=== PATIENT | female | born 1955 | race Caucasian/White ===

== ENCOUNTER → 2021-11-26 09:12 | Outpatient (CLI) | payer MEDICARE, SELFPAY ==
--- NOTE | 2021-11-26 | DI.RAD.S_ITS ---
PROCEDURE: XR CERVICAL SPINE 2V OR 3V INDICATIONS: NECK PAIN TECHNIQUE: 2 view(s) of the cervical spine were acquired. COMPARISON: None. FINDINGS: Bones: No fractures or dislocations to the T1 level. The lateral masses of C1 appear intact on the odontoid view. No suspicious bony lesions. There is moderate degenerative disc disease at C3-C4, C4-C5, C5-C6, C6-C7 and C7-T1. There is a lucency in the anterior aspect of the C4 vertebral body on the lateral view, probably related to an artifact. Soft tissues: No prevertebral soft tissue swelling. IMPRESSION: 1. Moderate degenerative disc disease. 2. Lucency in the anterior aspect of the C4 vertebral body is seen on the lateral view, probably caused by an artifact. If there is history of recent trauma, a CT is recommended for further evaluation. Dictated by: Pamella Hubbard M.D. on 11/26/2021 at 13:11 Approved by: Pamella Hubbard M.D. on 11/26/2021 at 13:14
== END ==
PROVIDERS: PCP Physician Assistant; Referring Provider Physician Assistant; Visit Provider Physician Assistant
DX: M50.31 Other cervical disc degeneration, high cervical region (principal)
CPT/HCPCS: 72040

== ENCOUNTER → 2022-06-21 13:32 | Outpatient (CLI) | payer MEDICARE, SELFPAY ==
[2022-06-21 21:24] LABS: Influenza A - CEPHEID Flu A NEGATIVE (NEGATIVE); Influenza B - CEPHEID Flu B NEGATIVE (NEGATIVE); Respiratory Syncytial Virus POSITIVE (Negative)
[2022-06-21 21:28] LABS: COVID-19 CEPHEID 4-PLEX PCR Negative (Negative)
== END ==
PROVIDERS: Family Provider Family Medicine; PCP Family Medicine; Visit Provider Registered Nurse
DX: R05.9 Cough, unspecified (principal)
CPT/HCPCS: 0241U

== ENCOUNTER → 2022-06-26 09:21 | Outpatient (CLI) | payer MEDICARE, SELFPAY ==
[2022-06-26 11:30] LABS: Add Manual Diff / Slide Review NO; Basophils Absolute Auto 0 /uL (0-100); Basophils Percent Auto 0.5 % (0-2); Eosinophils Absolute Auto 100 /uL (0-450); Eosinophils Percent Auto 2.6 % (2-4); Hematocrit 38.7 % (36-46); Hemoglobin 12.9 g/dL (12.0-16.0); Lymphocytes Absolute Auto 1700 /uL (1100-4500); Lymphocytes Percent Auto 33.7 % (25-40); Mean Corpuscular HGB Conc 33.5 % (30-36); Mean Corpuscular Volume 95.6 fL (80-100); Monocytes Absolute Auto 300 /uL (0-900); Monocytes Percent Auto 6.2 % (3-14); Neutrophils Absolute Auto 2900 /uL (1500-7000); Platelet Count 182 X10^3/uL (150-400); Red Blood Cell Count 4.05 X10^6/uL (4.0-5.2); Red Cell Distribution Width 12.5 % (11.6-14.8)
[2022-06-26 11:43] LABS: Alanine Aminotransferase 39 IU/L (<35); Albumin 4.2 g/dL (3.5-5.0); Albumin Globulin Ratio 1.3 (1.0-2.8); Alkaline Phosphatase 52 U/L (38-126); Aspartate Aminotransferase 34 IU/L (14-36); BUN Creatinine Ratio 17.6 (6-22); Bilirubin Total 0.7 mg/dL (0.2-1.3); Blood Urea Nitrogen 13 mg/dL (7-17); Calcium 8.8 mg/dL (8.4-10.2); Carbon Dioxide 29 mmol/L (22-32); Chloride 103 mmol/L (98-107); Cholesterol 180 mg/dL (140-199); Estimated Glomerular Filt Rate > 60 mL/min (>60); Globulin 3.2 g/dL (1.7-4.1); Glucose 90 mg/dL (80-110); HDL Cholesterol 55 mg/dL (40-60); HEMOLYSIS < 15 (0-50); LDL Cholesterol Calculated 99 mg/dL (<100); Potassium 4.1 mmol/L (3.4-5.1); Sodium 140 mmol/L (137-145); Total Protein 7.4 g/dL (6.3-8.2); Triglycerides 128 mg/dL (35-150)
[2022-06-26 12:15] LABS: Vitamin D 25 Hydroxy (D3) 37.6 ng/mL (30.0-100.0)
[2022-06-26 12:31] LABS: TSH w/ Reflex to FT4 1.21 uIU/mL (0.47-4.68)
[2022-06-26 12:46] LABS: Folate > 20.0 ng/mL (2.76-20.0); Vitamin B12 962 pg/mL (239-931)
== END ==
PROVIDERS: Family Provider Family Medicine; PCP Family Medicine; Referring Provider Family Medicine; Visit Provider Family Medicine
DX: E53.9 Vitamin B deficiency, unspecified (principal); Z13.220 Encounter for screening for lipoid disorders; E56.9 Vitamin deficiency, unspecified; R59.9 Enlarged lymph nodes, unspecified; Z13.29 Encounter for screening for other suspected endocrine disorder; Z13.0 Encounter for screening for diseases of the blood and blood-forming organs and certain disorders involving the immune mechanism; Z79.899 Other long term (current) drug therapy
CPT/HCPCS: 36415; 80053; 80061; 82306; 82607; 82746; 84443; 85025

== ENCOUNTER → 2022-08-05 11:53 | Outpatient (CLI) | payer MEDICARE, SELFPAY | PROVIDERS: Family Provider Family Medicine; PCP Family Medicine; Referring Provider Family Medicine; Visit Provider Family Medicine | DX: M85.852 Other specified disorders of bone density and structure, left thigh (principal); M50.30 Other cervical disc degeneration, unspecified cervical region; Z13.820 Encounter for screening for osteoporosis; Z78.0 Asymptomatic menopausal state; Z92.23 Personal history of estrogen therapy; Z90.710 Acquired absence of both cervix and uterus | CPT/HCPCS: 77080 ==

== ENCOUNTER 2022-08-28 09:45 | Outpatient (RCR) | payer MEDICARE, SELFPAY ==
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
--- NOTE | 2022-07-04 13:24 | PT.OPPOC ---
Physical, Occupational & Speech Therapy At [facility] Current Diagnoses Other kyphosis, cervicothoracic region (07/04/22) Postural lordosis, lumbar region (07/04/22) Other cervical disc degeneration, unspecified cervical region (07/04/22) Visit Care Team Role Provider Type FERCHO [place] Attending Provider Physician Family Provider Primary Care Provider Referring Provider Specialty: Nursing Address: [address] [place] [address], [id number] Email: Plan Of Care PT-OP-T Assessment and Plan Start: 05/15/22 12:53 Freq: Status: Active Protocol: Document 07/04/22 11:19 LRN (Rec: 07/04/22 12:22 LRN [id number]) Physical Therapy Assessment Rehab Potential Rehabilitation Potential Good Evaluation Complexity Number of Personal Factors/Comorbidities 1-2 Number of Body Systems Impaired 3 Clinical Presentation at Evaluation Evolving Impairments Impairments Activity Tolerance,Pain, Posture,ROM,Soft Tissue Mobility Goals Three Impairment Neck pain rated 5/10 Short Term Goal (STG) Pt will be educated in proper posture in sit, stand, and sleep positioning 05/23/22: Pt educated at length in proper sleep posturing with discussion of pillow height and positioning. Educated pt proper sitting and standing posture with phys cues of neck elongation and chin tuck. STG Duration 06/06/22 (05/23/22: MET GOAL) Longterm Goal (LTG) Pt goal is to decrease neck pain to no greater than 2-3/10 and onset to 3-4x/month. 05/20/22: Pain rated 1/10. 06/06/22: Painfree for 6 days before onset of pain yesterday last 1 day, relieved with med. 07/04/22: Migraines 6-7x in May. No pain for past 6 days. LTG Duration 07/15/22 (07/04/22: Progressing) Two Impairment Decreased Neck Mobility Impairment AROM (in deg's): Flex 45, Ext 20, Rot L 42, Rot R 45, SB 23 bilaterally. Longterm Goal (LTG) Improve AROM of neck ext and Rot 10-15 deg's. 05/20/22: AROM in deg's: Ext 48, Rot L 45, R 55; SB L 27, R 28. 07/04/22: AROM (in deg's): Flex 50, Ext 30, Rot L 50, R 52, SB 27 L, 25 R; after STM: Rot L 47, R 57, SB 32 bilaterally. LTG Duration 08/13/22 (07/04/22: Improved. Extension goal met 05/20/22) One Impairment Pt lacks appropriates self care HEP Short Term Goal (STG) Pt will be educated in self care pain management techniques to help decrease onset of pain (ice/heat, reduction in backpack weight). STG Duration 05/23/22 (05/23/22: MET GOAL) Vehicle Assembly Inspector Goal (LTG) Pt will be independent with a self care HEP of neck & shoulder mobility exercises. 05/20/22: HEP issued: Neck ROM stretch for ext, rot, UT, Lev scap and shoulder rolls. 05/23/22: Education in proper stand, sit and sleeping posture. LTG Duration 08/13/22 (05/23/22: Progressed) Progress Towards Goals Progress Comments NDI improved from score 9 to 1 . UE QuickDASH score improved from 9.09 to 6.81. Assessment Summary Assessment Pt demonstrates improved active cervical flex and R rot . She has stiffness with L Rot & R SB, but has been free of migraines for the past week . Pt shows much improved neck mobility after STM; therefore I recommend the pt continue physical therapy for another 4 -8 weeks to further improve her neck mobility to decrease onset of neck pain and migraines. Overall her neck and UE function has improved per Neck Disability & UE QuickDASH questionnaires. Physical Therapy Plan Frequency and Duration Frequency of Treatment 1x/Week Plan of Care Start Date 07/04/22 Plan of Care End Date 09/02/22 Therapeutic Interventions Therapeutic Interventions Home Exercise Program,Joint Mobilizations,Manual Therapy, Neuromuscular Re-education, Patient/Caregiver Education, Self-Care/Home Management,Soft Tissue Mobilization, Therapeutic Exercises Modalities Cold Pack/Ice Massage,Electric Stimulation,Hot Packs, Ultrasound Next Visit Focus/Plan Next Note Type Treatment Note Next Visit Plan Manual therapy to improve cervical mobility and decrease elevation of elevated ribs scapula and shoulder. Progress neck and scapular stabilization/strengthening ( UBE), add HEP - thoracic, neck and rib stretches. Monitor neck ext & Rot (R>L) mobility. Plan of Care Dates Plan of Care Start Date 07/04/22 Plan of Care End Date 09/02/22 Electronically Signed by: Oma Amaya, PT 07/04/22 0553 If you are in agreement with this Plan of Care, please return a signed and dated copy. I have reviewed this Plan of Care and certify that the skilled therapy services above are required to meet the patient?s needs. Physician Signature Date Printed Name and Credentials Clinical Instructor Signature Printed Name and Credentials
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
== END 2022-09-02 16:24 | disposition home or self-care (01) ==
LOC: PHYS 09:45
PROVIDERS: Family Provider Family Medicine; PCP Family Medicine; Referring Provider Family Medicine; Visit Provider Family Medicine
DX: M50.30 Other cervical disc degeneration, unspecified cervical region (principal); M40.293 Other kyphosis, cervicothoracic region; M40.46 Postural lordosis, lumbar region
CPT/HCPCS: 97110; 97140; 97162; 97535

== ENCOUNTER → 2022-10-30 14:51 | Outpatient (CLI) | payer MEDICARE, SELFPAY ==
--- NOTE | 2022-10-30 | DI.MG.S_ITS ---
BILATERAL DIGITAL SCREENING MAMMOGRAM 3D/2D WITH CAD: 10/30/2022 CLINICAL: Routine screening. Comparison is made to exams dated: 04/03/2020 mammogram and 02/23/2019 mammogram - outside location. Both breasts are heterogeneously dense, which may obscure small masses (category c / 51-75% glandular tissue). Current study was also evaluated with a Computer Aided Detection (CAD) system. No significant masses, calcifications, or other findings are seen in either breast. There has been no significant interval change. IMPRESSION: NEGATIVE There is no mammographic evidence of malignancy. A 1 year screening mammogram is recommended. Based on the Tyrer Cuzick model (a risk assessment model) the patient's lifetime risk is 6.4% and her 10 year risk is 3.7%. According to the ACR, ACS, and NCCN guidelines, an annual breast MRI exam along with mammogram is recommended if the patient's lifetime risk is 20% or greater. This exam was interpreted at Station ID: [id number]. NOTE: For mammograms, a report in lay terms will be sent to the patient. Approximately 15% of breast malignancies will not be visualized mammographically. In the management of a palpable breast mass, a negative mammogram must not discourage biopsy of a clinically suspicious lesion. Electronically Signed By: Carlos Eduardo ingram/loi:10/30/2022 16:09:34 letter sent: Normal Exam ACR BI-RADS Category 1: Negative [id number]
== END ==
PROVIDERS: Family Provider Family Medicine; PCP Family Medicine; Referring Provider Family Medicine; Visit Provider Family Medicine
DX: Z12.31 Encounter for screening mammogram for malignant neoplasm of breast (principal)
CPT/HCPCS: 77063; 77067

== ENCOUNTER → 2022-11-06 13:34 | Outpatient (CLI) | payer MEDICARE, SELFPAY ==
[2022-11-06 15:55] LABS: Appearance Urine UA CLEAR; Bilirubin Urine UA NEGATIVE (NEGATIVE); Color Urine UA YELLOW; Glucose Urine UA NEGATIVE (Negative); Ketones Urine UA NEGATIVE (NEGATIVE); Leukocyte Esterase Urine UA NEGATIVE (NEGATIVE); Nitrite Urine UA NEGATIVE (Negative); Occult Blood Urine UA NEGATIVE (Negative); Protein Urine UA NEGATIVE (Negative); Specific Gravity Urine UA <=1.005 (1.000-1.035); Urobilinogen Urine UA 0.2 E.U./dL (0.2)
[2022-11-06 16:00] LABS: pH Urine UA 6.5 (4.5-8.0)
[2022-11-06 16:19] LABS: Bacteria Urine None Seen; Culture Indicated Urine Cult Not Indicated; RBC Urine None Seen (0-5/HPF); Squamous Epithelial Cell Urine None Seen (0-5/HPF); WBC Urine None Seen (0-5/HPF)
== END ==
PROVIDERS: Family Provider Family Medicine; PCP Family Medicine; Referring Provider Family Medicine; Visit Provider Family Medicine
DX: R30.0 Dysuria (principal)
CPT/HCPCS: 81001; 87086

== ENCOUNTER 2022-11-08 08:45 | Emergency (ER) | payer MEDICARE, SELFPAY ==
[2022-11-08] VITALS (8 sets, daily range): BP systolic 125–172; BP diastolic 60–83; PULSE 87–121; RESP 15–16; TEMP 36.6; O2SAT 97–99; BMI 21.0
--- NOTE | 2022-11-08 08:53 | ED.ABDPAIN ---
HPI - Abdominal Pain General Chief Complaint: Abdominal Pain Stated Complaint: Lower Abd Pain Time Seen by Provider: 11/08/22 08:49 Source: patient, RN notes reviewed and old records reviewed Mode of arrival: Ambulatory Limitations: no limitations History of Present Illness HPI narrative: This is a 67-year-old female who takes oral estrogen daily. Patient states she started having lower suprapubic pain and sometimes to the left side in the lower quadrant starting Thursday, the 05 of November. Patient states has been sort of intermittent in intensity slowly worsening over time. Patient denies fevers but has had some chills. She is had nausea but no vomiting. She denies chest pain or shortness of breath. She is noticed her heart rate felt a little fast last night. She states she had normal bowel movements last night but had bowel movements 4 times which is more frequency than typical. She states no black or bloody stools. She denies back or flank pain. She denies dysuria, urgency or frequency. No hematuria. No vaginal bleeding or discharge. Patient states she has had hysterectomy, she is had cholecystectomy. She states she is allergic to gabapentin, penicillin and venlafaxine. No tobacco, occasional alcohol, no illicit. [employer] Salima Pritchard is her PCP, patient notes she contacted her physician they did an outpatient urine sample and she was told it was negative. Patient does note incidentally she had COVID around Anthony's day October 07 she was on Paxil bid symptoms improved and then she had rebound symptoms for another 10 days for about 20 days total of symptoms. Related Data Previous Rx's Medication Instructions Recorded ciprofloxacin HCl 500 mg tablet 500 mg PO BID #20 tabs 11/08/22 metronidazole 500 mg tablet 500 mg PO BID 10 days #20 tabs 11/08/22 Allergies Allergy/AdvReac Type Severity Reaction Status Date / Time gabapentin AdvReac Mild Verified 11/08/22 08:59 Penicillins AdvReac Mild Verified 11/08/22 08:59 venlafaxine AdvReac Mild Verified 11/08/22 08:59 Review of Systems Review of Systems ROS Unobtainable: All systems reviewed & are unremarkable except as noted in HPI and below Patient History Social History Smoking Status: Never smoker Smoking Status: Never smoker Exam Narrative Exam Narrative: GENERAL: Alert and oriented x three, well-appearing elderly female in mild distress. HEENT: Head normocephalic, atraumatic, EOMI, pupils reactive, face symmetric, moist mucous membranes NECK: Supple, full range of motion CARDIOVASCULAR: Slightly tachycardic Regular rate and rhythm without murmurs, rubs or gallops. No JVD. No swelling bilateral lower extremities. RESPIRATORY: Breath sounds equal bilaterally, no wheezes rales or rhonchi. No tachypnea or accessory muscle use. ABDOMEN: Soft, mild suprapubic and left lower quadrant tenderness. Nondistended. Normoactive bowel sounds all 4 quadrants. No guarding or rebound, rigidity, no mass : No CVA tenderness bilaterally. EXTREMITIES: Normal range of motion, no clubbing or edema. Neurovascularly intact NEUROLOGICAL: Cranial nerves II through XII grossly intact. Moving all extremities SKIN: Warm, dry, no petechiae, no rashes or lesions. Initial Vital Signs Initial Vital Signs: Vital Signs Pulse Rate 121 H 11/08/22 08:51 Blood Pressure 172/83 H 11/08/22 08:51 Pulse Oximetry 97 11/08/22 08:51 Course Orders Ordered: Discontinued Medications Sodium Chloride (Normal Saline 0.9%) 1,000 mls @ 1,000 mls/hr IV BOLUS ONE Stop: 11/08/22 10:02 Last Infusion: 11/08/22 10:44 Dose: 0 mls/hr Documented By: Admin: 11/08/22 09:13 Dose: 1,000 mls/hr Documented By: EVERT Ondansetron HCl (Ondansetron 4 Mg Odt) 4 mg PO NOW PRN PRN Reason: Nausea And Vomiting Ondansetron HCl (Ondansetron 4 Mg/2 Ml Inj) 4 mg IV NOW PRN PRN Reason: Nausea And Vomiting Vital Signs Vital signs: Vital Signs - 8 hr 11/08/22 08:55 11/08/22 08:51 11/08/22 08:51 Temperature 97.9 F Pulse Rate 121 H 121 H Respiratory Rate 16 Blood Pressure 172/83 H 172/83 H Pulse Oximetry 97 97 Oxygen Delivery Method Room Air 11/08/22 09:00 11/08/22 09:00 Temperature Pulse Rate 111 H Respiratory Rate Blood Pressure 150/64 H Pulse Oximetry 99 Oxygen Delivery Method MDM - Abdominal Pain Lab Data 11/08/22 08:55 11/08/22 08:55 Labs: Lab Results 11/08/22 11/08/22 11/08/22 Range/Units 08:55 08:55 08:55 WBC 9.3 (4.5-11.0) X10^3/uL RBC 4.22 (4.0-5.2) X10^6/uL Hgb 14.0 (12.0-16.0) g/dL Hct 40.1 (36-46) % MCV 95.0 (80-100) fL MCH 33.2 (26-34) PG MCHC 34.9 (30-36) % RDW 13.3 (11.6-14.8) % Plt Count 178 (150-400) X10^3/uL Neut % (Auto) 76.4 H (50-75) % Lymph % (Auto) 16.2 L (25-40) % [place] % (Auto) 6.5 (3-14) % Eos % (Auto) 0.4 L (2-4) % Baso % (Auto) 0.5 (0-2) % Neut # (Auto) 7100 H (1685-8032) /uL Lymph # (Auto) 1500 (8552-0251) /uL [place] # (Auto) 600 (0-900) /uL Eos # (Auto) 0 (0-450) /uL Baso # (Auto) 0 (0-100) /uL Sodium 136 L (137-145) mmol/L Potassium 4.0 (3.4-5.1) mmol/L Chloride 100 (98-107) mmol/L Carbon Dioxide 30 (22-32) mmol/L BUN 9 (7-17) mg/dL Creatinine 0.66 (0.52-1.04) mg/dL Estimated GFR > 60 (>60) mL/min BUN/Creatinine Ratio 13.6 (6-22) Glucose 202 H (80-110) mg/dL Lactate 2.0 (0.7-2.1) mmol/L Calcium 8.9 (8.4-10.2) mg/dL Total Bilirubin 1.1 (0.2-1.3) mg/dL AST 23 (14-36) IU/L ALT 22 (<35) IU/L Alkaline Phosphatase 54 (38-126) U/L Total Protein 7.6 (6.3-8.2) g/dL Albumin 4.5 (3.5-5.0) g/dL Globulin 3.1 (1.7-4.1) g/dL Albumin/Globulin Ratio 1.5 (1.0-2.8) Lipase 56 (23-300) U/L Point of care testing: Urine Dip Bedside Urine Glucose Negative Bedside Urine Bilirubin - Negative Bedside Urine Ketone - Negative Urine Specific [place] 1.005 Bedside Urine Occult Blood - Negative Bedside Urine pH 6.5 Bedside Urine Protein - Negative Bedside Urine Urobilinogen - Negative Bedside Urine Nitrite - Negative Bedside Urine Leukocytes - Negative Esterase Imaging Data CT scan - abdomen/pelvis: Radiologist's Impression: [address] [address] [address] Scan Report Signed Patient: Shelia Camargo MR#: [id number] : 1955 Acct:[id number] Age/Sex: 67 / F Date of Service: 11/08/22 Loc: ED Accession Number: [id number] ?? Procedure: CT abdomen pelvis w con Ordering Provider: Emily Hanna D.O. PROCEDURE:? CT ABDOMEN PELVIS W CON ? INDICATIONS:? suprapubic, LLQ pain x 3 days. ? TECHNIQUE:? After the administration of intravenous contrast, axial sections acquired from the lung bases to the pubic symphysis.? Coronal and sagittal reformats were performed.? For radiation dose reduction, the following was used:? automated exposure control, adjustment of mA and/or kV according to patient size.? ? COMPARISON:? None. ? FINDINGS:? Image quality:? Excellent.? ? Lung bases:? Unremarkable. Heart:? No significant findings. ? ABDOMEN: Liver:? Hepatic steatosis. Gallbladder:? Surgically absent. Biliary ducts:? Mild common biliary and pancreatic ductal dilation, a finding of unknown clinical significance in the setting of prior cholecystectomy. Pancreas:? Unremarkable.? ? Spleen:? Unremarkable.? ? Adrenal Glands:? 8 mm left adrenal nodule. Kidneys and Ureters:? Slight right hydroureter without stone identified.? Small exophytic left renal cyst. ? Stomach and Bowel:? Inflammatory changes of the sigmoid colon with wall thickening and numerous colonic diverticula.? No surrounding free fluid abscess identified.? Moderate stool in the colon.? No evidence of small bowel obstruction or focal wall thickening identified. Peritoneum:? No abnormal intraperitoneal fluid.? No free air.? ? Ventral Wall: ? No hernias.? Abdominal Nodes:? No retroperitoneal or mesenteric adenopathy by size criteria.? Vessels:? Aorta and inferior vena cava are normal in size.? ? PELVIS: Pelvic Organs:? Unremarkable.? ? Bladder:? Unremarkable.? ? Pelvic Nodes: No enlarged lymph nodes.? Miscellaneous: No hernias are seen. ? ? ? Bones:? Unremarkable. ? ? IMPRESSION:? Simple acute diverticulitis of the sigmoid colon.? Hepatic steatosis. Moderate stool throughout the colon. Right hydroureter may be secondary to inflammatory changes in the pelvis. Left 8 mm adrenal nodule consider outpatient non emergent dedicated adrenal imaging. . ? ? ? Dictated by: Kodi Dominique M.D. on 11/08/2022 at 9:09 ? ? Approved by: Kodi Dominique M.D. on 11/08/2022 at 9:16?? ECG Data Attestation: I personally reviewed and interpreted this ECG as follows: Prior ECG tracings: not available for review Interpretation: Rate of 98 OK 116 QRS 80 QTC 428. No acute ST changes appreciated. No priors for comparison. MDM Narrative Medical decision making narrative: This is a 67-year-old female who presents to the emergency department with complaint of suprapubic and left lower quadrant pain for the past 3 days. Patient is mildly tender she is a little tachycardic at 1:10 a.m. she is been slowly improving while sitting in the room. Patient has had some mild nausea she has not had any urinary symptoms she had more frequency and stool but has not had significant change in the consistency. Concern for possible diverticulitis or other infection. She has had a prior hysterectomy and cholecystectomy remotely. Plan for labs, lactate and cultures included secondary to tachycardia. Urine is negative. CT abdomen pelvis as well suspect possibly diverticulitis versus other causes, CT shows diverticulitis without abscess or perforation. There is an exophytic renal cyst some slight hydroureter on the right but no obvious obstructive lesion and adrenal cyst. Findings were reviewed with the patient. She has had penicillin allergy in the past she knows she had a rash she does not recall if there was any airway involvement she is thinks she is had amoxicillin but unsure if she had any reaction to it. Out of abundance of caution will do Cipro Flagyl for her antibiotic choice. Patient's heart rate has improved without any intervention beyond fluids. Patient defers anything stronger for pain than [id number] Tylenol ibuprofen. We discussed return precautions. All questions answered. Discharge Plan Departure Patient Disposition: Home Clinical Impression: Diverticulitis, Adrenal nodule, Renal cyst Instructions: DI for Diverticulitis Activity Restrictions/Additional Instructions: Your imaging today shows diverticulitis, take antibiotics until completely gone. Prescription for antibiotics sent to [facility] in [place]. You may take Tylenol up to a 1000 mg every 6 hours and/or ibuprofen up to 600 mg every 6 hours as needed for pain. You are noted to have a small adrenal nodule please follow-up for adrenal imaging with your primary care. There is a small cyst on your left kidney this does not require any follow-up at this time. Please return for fevers, worsening abdominal, back or flank pain, persistent vomiting, black or bloody stools or other new or concerning changes. Prescriptions: New ciprofloxacin HCl 500 mg tablet 500 mg PO BID Qty: 20 0RF metronidazole 500 mg tablet 500 mg PO BID 10 Days Qty: 20 0RF Referrals: Salima Pritchard ARNP [Primary Care Provider] - Stand Alone Forms: Patient Portal/API
[2022-11-08 09:03] LABS: Add Manual Diff / Slide Review NO; Basophils Absolute Auto 0 /uL (0-100); Basophils Percent Auto 0.5 % (0-2); Eosinophils Absolute Auto 0 /uL (0-450); Eosinophils Percent Auto 0.4 % (2-4); Hematocrit 40.1 % (36-46); Lymphocytes Absolute Auto 1500 /uL (1100-4500); Lymphocytes Percent Auto 16.2 % (25-40); Mean Corpuscular HGB Conc 34.9 % (30-36); Mean Corpuscular Hemoglobin 33.2 PG (26-34); Monocytes Absolute Auto 600 /uL (0-900); Monocytes Percent Auto 6.5 % (3-14); Neutrophils Absolute Auto 7100 /uL (1500-7000); Neutrophils Percent Auto 76.4 % (50-75); Platelet Count 178 X10^3/uL (150-400); Red Blood Cell Count 4.22 X10^6/uL (4.0-5.2); Red Cell Distribution Width 13.3 % (11.6-14.8); White Blood Cell Count 9.3 X10^3/uL (4.5-11.0)
--- NOTE | 2022-11-08 09:03 | DI.CT.S_ITS ---
PROCEDURE: CT ABDOMEN PELVIS W CON INDICATIONS: suprapubic, LLQ pain x 3 days. TECHNIQUE: After the administration of intravenous contrast, axial sections acquired from the lung bases to the pubic symphysis. Coronal and sagittal reformats were performed. For radiation dose reduction, the following was used: automated exposure control, adjustment of mA and/or kV according to patient size. COMPARISON: None. FINDINGS: Image quality: Excellent. Lung bases: Unremarkable. Heart: No significant findings. ABDOMEN: Liver: Hepatic steatosis. Gallbladder: Surgically absent. Biliary ducts: Mild common biliary and pancreatic ductal dilation, a finding of unknown clinical significance in the setting of prior cholecystectomy. Pancreas: Unremarkable. Spleen: Unremarkable. Adrenal Glands: 8 mm left adrenal nodule. Kidneys and Ureters: Slight right hydroureter without stone identified. Small exophytic left renal cyst. Stomach and Bowel: Inflammatory changes of the sigmoid colon with wall thickening and numerous colonic diverticula. No surrounding free fluid abscess identified. Moderate stool in the colon. No evidence of small bowel obstruction or focal wall thickening identified. Peritoneum: No abnormal intraperitoneal fluid. No free air. Ventral Wall: No hernias. Abdominal Nodes: No retroperitoneal or mesenteric adenopathy by size criteria. Vessels: Aorta and inferior vena cava are normal in size. PELVIS: Pelvic Organs: Unremarkable. Bladder: Unremarkable. Pelvic Nodes: No enlarged lymph nodes. Miscellaneous: No hernias are seen. Bones: Unremarkable. IMPRESSION: Simple acute diverticulitis of the sigmoid colon. Hepatic steatosis. Moderate stool throughout the colon. Right hydroureter may be secondary to inflammatory changes in the pelvis. Left 8 mm adrenal nodule consider outpatient non emergent dedicated adrenal imaging. . Dictated by: Kodi Dominique M.D. on 11/08/2022 at 9:09 Approved by: Kodi Dominique M.D. on 11/08/2022 at 9:16
[2022-11-08] MEDS: SODIUM CHLORIDE 0.9% 1,000 ML 1000 ML IV (09:13)
[2022-11-08 09:16] LABS: Alanine Aminotransferase 22 IU/L (<35); Albumin 4.5 g/dL (3.5-5.0); Albumin Globulin Ratio 1.5 (1.0-2.8); Alkaline Phosphatase 54 U/L (38-126); Aspartate Aminotransferase 23 IU/L (14-36); BUN Creatinine Ratio 13.6 (6-22); Bilirubin Total 1.1 mg/dL (0.2-1.3); Blood Urea Nitrogen 9 mg/dL (7-17); Calcium 8.9 mg/dL (8.4-10.2); Carbon Dioxide 30 mmol/L (22-32); Chloride 100 mmol/L (98-107); Estimated Glomerular Filt Rate > 60 mL/min (>60); Globulin 3.1 g/dL (1.7-4.1); Glucose 202 mg/dL (80-110); HEMOLYSIS < 15 (0-50); Lipase 56 U/L (23-300); Sodium 136 mmol/L (137-145); Total Protein 7.6 g/dL (6.3-8.2)
== END 2022-11-08 10:47 | disposition home or self-care (01) ==
PROVIDERS: Emergency Provider Emergency Medicine; Family Provider Family Medicine; PCP Family Medicine
DX: K57.92 Diverticulitis of intestine, part unspecified, without perforation or abscess without bleeding (principal); E27.8 Other specified disorders of adrenal gland; N28.1 Cyst of kidney, acquired; R00.0 Tachycardia, unspecified
CPT/HCPCS: 36415; 74177; 80053; 81003; 83605; 83690; 85025; 87040; 93005; 99284

== ENCOUNTER → 2022-11-12 10:32 | Outpatient (CLI) | payer MEDICARE, SELFPAY ==
[2022-11-12 14:30] LABS: TSH w/ Reflex to FT4 0.87 uIU/mL (0.47-4.68)
== END ==
LOC: LAB 10:34 → RESP 11:31
PROVIDERS: Family Provider Family Medicine; PCP Family Medicine; Referring Provider Nurse Practitioner Family; Visit Provider Nurse Practitioner Family
DX: R00.0 Tachycardia, unspecified (principal); K76.0 Fatty (change of) liver, not elsewhere classified
CPT/HCPCS: 84443; 86704; 86706; 87340; 93005; 93010

== ENCOUNTER → 2022-11-24 11:49 | Outpatient (CLI) | payer MEDICARE, SELFPAY ==
[2022-11-25 07:53] LABS: Interpretation Negative (Negative)
== END ==
PROVIDERS: Family Provider Family Medicine; PCP Family Medicine; Referring Provider Family Medicine; Visit Provider Family Medicine
DX: R10.13 Epigastric pain (principal)
CPT/HCPCS: 83013

== ENCOUNTER → 2023-02-26 12:29 | Outpatient (CLI) | payer MEDICARE, SELFPAY ==
--- NOTE | 2023-02-26 12:30 | DI.CT.S_ITS ---
PROCEDURE: CT ABDOMEN ADRENAL PROTOCOL INDICATIONS: NEOPLASM OF UNCERTAIN BEHAVIOR, LT ADRENAL GLAND TECHNIQUE: Noncontrast 3 mm thick sections acquired from the diaphragms to the iliac crests. After the administration of intravenous contrast, 3 mm thick venous-phase and 15-minute delayed images acquired from the diaphragms to the iliac crests. For radiation dose reduction, the following was used: automated exposure control, adjustment of mA and/or kV according to patient size. COMPARISON: [facility], CT, CT ABDOMEN PELVIS W CON, 11/08/2022, 9:12. FINDINGS: Image quality: Good Lower chest: Unremarkable lung bases. Solid organs: Liver appears unremarkable. There are cholecystectomy clips. No pathologic dilation of the biliary tree or pancreatic duct. Mildly prominent pancreatic duct at the head measures about 3-4 millimeters. No splenomegaly. There is an 8-9 millimeter left adrenal nodule. Absolute washout is 57 percent. Relative washout is 40.2 percent. This is compatible with an adenoma. Subcentimeter lesions are too small to characterize in the kidneys, Bosniak 2. No hydronephrosis. Vessels and lymph nodes: No abdominal aortic aneurysm. No pathologic lymph nodes by size criteria. Bowel and peritoneum: There is a posterior gastric diverticulum. No evidence of bowel obstruction or pathologic ascites. Body wall: Unremarkable Bones: No acute or suspicious osseous finding. Degenerative changes are present. IMPRESSION: 8 millimeter left adrenal adenoma. Please correlate with laboratory testing to determine functional status. Dictated by: Chet Vera M.D. on 02/27/2023 at 9:22 Approved by: Chet Vera M.D. on 02/27/2023 at 9:30
[2023-02-26 12:59] LABS: Alanine Aminotransferase 26 IU/L (<35); Albumin 4.4 g/dL (3.5-5.0); Albumin Globulin Ratio 1.4 (1.0-2.8); Alkaline Phosphatase 51 U/L (38-126); Aspartate Aminotransferase 30 IU/L (14-36); BUN Creatinine Ratio 25.4 (6-22); Bilirubin Total 0.5 mg/dL (0.2-1.3); Blood Urea Nitrogen 18 mg/dL (7-17); Calcium 9.4 mg/dL (8.4-10.2); Carbon Dioxide 32 mmol/L (22-32); Chloride 100 mmol/L (98-107); Estimated Glomerular Filt Rate > 60 mL/min (>60); Globulin 3.1 g/dL (1.7-4.1); Glucose 156 mg/dL (80-110); HEMOLYSIS < 15 (0-50); Potassium 4.2 mmol/L (3.4-5.1); Sodium 136 mmol/L (137-145); Total Protein 7.5 g/dL (6.3-8.2)
== END ==
PROVIDERS: Radiology Diagnostic Radiology; Family Provider Family Medicine; PCP Nurse Practitioner Family; Referring Provider Nurse Practitioner Family; Visit Provider Nurse Practitioner Family
DX: D44.12 Neoplasm of uncertain behavior of left adrenal gland (principal)
CPT/HCPCS: 36415; 74170; 80053; Q9967

== ENCOUNTER → 2023-05-14 08:28 | Outpatient (CLI) | payer MEDICARE, SELFPAY ==
[2023-05-14 10:14] LABS: BUN Creatinine Ratio 21.6 (6-22); Blood Urea Nitrogen 16 mg/dL (7-17); Calcium 9.6 mg/dL (8.4-10.2); Carbon Dioxide 29 mmol/L (22-32); Chloride 104 mmol/L (98-107); Estimated Glomerular Filt Rate > 60 mL/min (>60); Glucose 96 mg/dL (80-110); HEMOLYSIS < 15 (0-50); Potassium 4.8 mmol/L (3.4-5.1); Sodium 139 mmol/L (137-145)
[2023-05-19 07:59] LABS: Metanephrine,Plasma 37.7 pg/mL (0.0-88.0)
[2023-05-20 19:58] LABS: Aldosterone/Renin Activity Rat 2.4 (0.0-30.0); Plama Renin, LC/MS/MS 0.655 ng/mL/hr (0.167-5.380)
== END ==
PROVIDERS: Family Provider Family Medicine; PCP Nurse Practitioner Family; Referring Provider Internal Medicine Endocrinology, Diabetes & Metabolism; Visit Provider Internal Medicine Endocrinology, Diabetes & Metabolism
DX: D35.02 Benign neoplasm of left adrenal gland (principal)
CPT/HCPCS: 36415; 80048; 82088; 82157; 82627; 83835; 84244

== ENCOUNTER → 2023-05-22 09:46 | Outpatient (CLI) | payer MEDICARE, SELFPAY ==
[2023-05-29 00:12] LABS: Cortisol Fr ug/24hr urine 42 ug/24 hr (6-42); Cortisol, Free, Urine 14 ug/L (Undefined)
[2023-05-29 05:33] LABS: Normetanephrine Total 219 ug/24 hr (131-612); Urine, Metanephrine 31 ug/L (Undefined); Urine, Normetanephrine 73 ug/L (Undefined)
== END ==
PROVIDERS: Family Provider Family Medicine; PCP Nurse Practitioner Family; Referring Provider Internal Medicine Endocrinology, Diabetes & Metabolism; Visit Provider Internal Medicine Endocrinology, Diabetes & Metabolism
DX: D35.02 Benign neoplasm of left adrenal gland (principal)
CPT/HCPCS: 82530; 83835

== ENCOUNTER → 2023-05-27 09:11 | Outpatient (CLI) | payer MEDICARE, SELFPAY | PROVIDERS: Family Provider Family Medicine; PCP Nurse Practitioner Family; Referring Provider Internal Medicine Endocrinology, Diabetes & Metabolism; Visit Provider Internal Medicine Endocrinology, Diabetes & Metabolism | DX: D35.02 Benign neoplasm of left adrenal gland (principal) | CPT/HCPCS: 82533 ==

== ENCOUNTER → 2023-11-02 09:00 | Outpatient (CLI) | payer MEDICARE, SELFPAY ==
--- NOTE | 2023-11-02 09:01 | DI.MG.S_ITS ---
BILATERAL DIGITAL SCREENING MAMMOGRAM 3D/2D WITH CAD: 11/02/2023 CLINICAL: Routine screening. Comparison is made to exams dated: 10/30/2022 mammogram - [facility], 02/23/2019 mammogram, and 04/03/2020 mammogram - outside location. Both breasts are heterogeneously dense, which may obscure small masses (category c / 51-75% glandular tissue). Current study was also evaluated with a Computer Aided Detection (CAD) system. No significant masses, calcifications, or other findings are seen in either breast. There has been no significant interval change. IMPRESSION: NEGATIVE There is no mammographic evidence of malignancy. A 1 year screening mammogram is recommended. Based on the Tyrer Cuzick model (a risk assessment model) the patient's lifetime risk is 6.0% and her 10 year risk is 3.8%. According to the ACR, ACS, and NCCN guidelines, an annual breast MRI exam along with mammogram is recommended if the patient's lifetime risk is 20% or greater. This exam was interpreted at Station ID: [id number]. NOTE: For mammograms, a report in lay terms will be sent to the patient. Approximately 15% of breast malignancies will not be visualized mammographically. In the management of a palpable breast mass, a negative mammogram must not discourage biopsy of a clinically suspicious lesion. Electronically Signed By: Oma pearce/loi:11/02/2023 12:20:20 letter sent: Normal Exam ACR BI-RADS Category 1: Negative [id number]
== END ==
LOC: MAMMO 09:01
PROVIDERS: Family Provider Family Medicine; PCP Nurse Practitioner Family; Referring Provider Nurse Practitioner Family; Visit Provider Nurse Practitioner Family
DX: Z12.31 Encounter for screening mammogram for malignant neoplasm of breast (principal); R92.333 Mammographic heterogeneous density, bilateral breasts
CPT/HCPCS: 77063; 77067

== ENCOUNTER → 2024-02-29 07:53 | Outpatient (CLI) | payer MEDICARE, SELFPAY ==
--- NOTE | 2024-02-29 07:54 | DI.CT.S_ITS ---
PROCEDURE: CT ABDOMEN ADRENAL PROTOCOL INDICATIONS: ADENOMA OF LEFT ADREANAL GLAND TECHNIQUE: Noncontrast 3 mm thick sections acquired from the diaphragms to the iliac crests. After the administration of intravenous contrast, 3 mm thick venous-phase and 15-minute delayed images acquired from the diaphragms to the iliac crests. For radiation dose reduction, the following was used: automated exposure control, adjustment of mA and/or kV according to patient size. COMPARISON: [facility], CT, CT ABDOMEN ADRENAL PROTOCOL, 02/26/2023, 13:19. FINDINGS: Image quality: Diagnostic Lower chest: Unremarkable lung bases Liver: Unremarkable. The hepatic dome is not fully imaged Gallbladder and biliary system: Unremarkable, nondilated allowing for postsurgical state Pancreas: No ductal dilation Spleen: Nonenlarged Adrenals: 8 mm nodule in the left adrenal (2/26) is stable. Relative washout of 41.2% is consistent with an adenoma, as before. Correlate with biochemical testing to determine functional status. Kidneys: No solid mass. No hydronephrosis Vessels and lymph nodes: The main portal vein is patent. No abdominal aortic aneurysm where visualized. No pathologic lymph nodes by size criteria Bowel and peritoneum: No evidence of small bowel obstruction. Moderate fecal loading. No pathologic ascites Body wall: Unremarkable Bones: Degenerative changes IMPRESSION: Left adrenal adenoma is stable compared to 2022. Correlate with biochemical testing to determine functional status. Dictated by: Chet Vera M.D. on 02/29/2024 at 11:23 Approved by: Chet Vera M.D. on 02/29/2024 at 11:29
[2024-02-29 08:24] LABS: Estimated Glomerular Filt Rate > 60 mL/min (>60)
== END ==
PROVIDERS: Radiology Diagnostic Radiology; Family Provider Family Medicine; PCP Nurse Practitioner Family; Referring Provider Internal Medicine Endocrinology, Diabetes & Metabolism; Visit Provider Internal Medicine Endocrinology, Diabetes & Metabolism
DX: D35.02 Benign neoplasm of left adrenal gland (principal)
CPT/HCPCS: 36415; 74170; 82565; Q9967

== ENCOUNTER → 2024-04-08 11:08 | Outpatient (CLI) | payer MEDICARE, SELFPAY ==
[2024-04-08 12:31] LABS: Alanine Aminotransferase 16 IU/L (<35); Albumin 4.5 g/dL (3.5-5.0); Albumin Globulin Ratio 1.7 (1.0-2.8); Alkaline Phosphatase 48 U/L (38-126); Aspartate Aminotransferase 27 IU/L (14-36); BUN Creatinine Ratio 29.6 (6-22); Bilirubin Total 0.7 mg/dL (0.2-1.3); Blood Urea Nitrogen 24 mg/dL (7-17); Calcium 9.8 mg/dL (8.4-10.2); Carbon Dioxide 25 mmol/L (22-32); Chloride 104 mmol/L (98-107); Estimated Glomerular Filt Rate > 60 mL/min (>60); Globulin 2.6 g/dL (1.7-4.1); Glucose 86 mg/dL (80-110); HEMOLYSIS 31 (0-50); Potassium 4.7 mmol/L (3.4-5.1); Sodium 137 mmol/L (137-145); Total Protein 7.1 g/dL (6.3-8.2)
[2024-04-08 12:43] LABS: Appearance Urine UA CLEAR; Bilirubin Urine UA NEGATIVE (NEGATIVE); Color Urine UA YELLOW; Glucose Urine UA NEGATIVE (Negative); Ketones Urine UA NEGATIVE (NEGATIVE); Leukocyte Esterase Urine UA NEGATIVE (NEGATIVE); Nitrite Urine UA NEGATIVE (Negative); Occult Blood Urine UA TRACE-INTACT (Negative); Protein Urine UA NEGATIVE (Negative); Specific Gravity Urine UA <=1.005 (1.000-1.035); Urobilinogen Urine UA 0.2 E.U./dL (0.2)
[2024-04-08 12:45] LABS: pH Urine UA 5.5 (4.5-8.0)
[2024-04-08 12:46] LABS: Urine Volume 10mL (spun)
[2024-04-08 12:49] LABS: Bacteria Urine None Seen; RBC Urine None Seen (0-5/HPF); Squamous Epithelial Cell Urine None Seen (0-5/HPF); WBC Urine None Seen (0-5/HPF)
[2024-04-08 12:50] LABS: Culture Indicated Urine Cult Not Indicated
== END ==
PROVIDERS: Family Provider Family Medicine; PCP Nurse Practitioner Family; Referring Provider Nurse Practitioner Family; Visit Provider Nurse Practitioner Family
DX: R74.01 Elevation of levels of liver transaminase levels (principal); R30.0 Dysuria
CPT/HCPCS: 36415; 80053; 81001

== ENCOUNTER → 2024-04-19 11:10 | Outpatient (CLI) | payer MEDICARE, SELFPAY ==
[2024-04-19 14:18] LABS: Appearance Urine UA CLEAR; Bilirubin Urine UA NEGATIVE (NEGATIVE); Color Urine UA YELLOW; Glucose Urine UA NEGATIVE (Negative); Ketones Urine UA NEGATIVE (NEGATIVE); Leukocyte Esterase Urine UA NEGATIVE (NEGATIVE); Nitrite Urine UA NEGATIVE (Negative); Occult Blood Urine UA NEGATIVE (Negative); Protein Urine UA NEGATIVE (Negative); Specific Gravity Urine UA <=1.005 (1.000-1.035); Urobilinogen Urine UA 0.2 E.U./dL (0.2)
[2024-04-19 14:20] LABS: pH Urine UA 6.5 (4.5-8.0)
[2024-04-19 14:29] LABS: Bacteria Urine None Seen; Culture Indicated Urine Cult Not Indicated; RBC Urine None Seen (0-5/HPF); Squamous Epithelial Cell Urine 0-1 /HPF (0-5/HPF); Urine Volume 10mL (spun); WBC Urine None Seen (0-5/HPF)
== END ==
PROVIDERS: Family Provider Family Medicine; PCP Nurse Practitioner Family; Referring Provider Nurse Practitioner Family; Visit Provider Nurse Practitioner Family
DX: R31.29 Other microscopic hematuria (principal)
CPT/HCPCS: 81001

== ENCOUNTER → 2024-11-12 | Outpatient (CLI) | payer MEDICARE, SELFPAY ==
--- NOTE | 2024-11-12 08:19 | DI.MG.S_ITS ---
MM screening mammo BI: 11/12/2024. BI-RADS: 1 CLINICAL: 69-year old female for bilateral screening mammogram. Tyrer-Cuzick lifetime risk of 2.8%. No personal or first-degree family history of breast cancer. PRIOR EXAMS 11/02/2023, 10/30/2022, 04/03/2020. MAMMOGRAPHY TECHNIQUE: 2D and 3D (tomosynthesis) digital mammographic views obtained, with additional images as needed for full coverage. Current study was also evaluated with a Computer Aided Detection (CAD) system. DENSITY C. The breasts are heterogeneously dense, which may obscure small masses. MAMMOGRAPHY FINDINGS Bilateral: No suspicious mass, asymmetry, microcalcification, or other abnormality seen. No significant change from comparison. IMPRESSION: * No evidence of malignancy. RECOMMENDATIONS Bilateral * Annual screening mammography. OVERALL ASSESSMENT CATEGORY BI-RADS-1: Negative. The [employer] recommends annual screening mammography beginning at age 40 for women with average risk of breast cancer. ELECTRONICALLY SIGNED: Isaura Everett M.D. on 11/14/2024 at 09:03:09 AM PT Interpreting Station ID: [id number]
== END ==
PROVIDERS: Family Provider Family Medicine; PCP Family Medicine; Referring Provider Family Medicine; Visit Provider Family Medicine
DX: Z12.31 Encounter for screening mammogram for malignant neoplasm of breast (principal); R92.333 Mammographic heterogeneous density, bilateral breasts
CPT/HCPCS: 77063; 77067

== ENCOUNTER → 2025-01-24 09:03 | Outpatient (CLI) | payer MEDICARE, SELFPAY | PROVIDERS: Family Provider Family Medicine; PCP Family Medicine; Referring Provider Internal Medicine Endocrinology, Diabetes & Metabolism; Visit Provider Internal Medicine Endocrinology, Diabetes & Metabolism | DX: D35.02 Benign neoplasm of left adrenal gland (principal) | CPT/HCPCS: 36415; 82088; 82157; 82627; 83835; 84244 ==

== ENCOUNTER → 2025-01-31 10:03 | Outpatient (CLI) | payer MEDICARE, SELFPAY | PROVIDERS: Family Provider Family Medicine; PCP Family Medicine; Referring Provider Internal Medicine Endocrinology, Diabetes & Metabolism; Visit Provider Internal Medicine Endocrinology, Diabetes & Metabolism | DX: D35.02 Benign neoplasm of left adrenal gland (principal) | CPT/HCPCS: 82530 ==

== ENCOUNTER → 2025-08-08 10:02 | Outpatient (CLI) | payer MEDICARE, SELFPAY ==
--- NOTE | 2025-08-08 10:03 | DI.RAD.S_ITS ---
PROCEDURE: XR DEXA AXIAL SKELETON INDICATIONS: Postmenopausal screening COMPARISON: [facility], , XR DEXA AXIAL SKELETON, 08/05/2022, 12:14. FINDINGS: Lumbar Spine: Bone mineral density 0.92 g/cm2, T score -1.1,. Previously -1.2 Left Femoral Neck: Bone mineral density 0.63 g/cm2, T score -2. Previously -1.8 Left Hip: Bone mineral density 0.78 g/cm2, T score -1.3, previously -1.2. Fracture Risk Calculation (when applicable): 10-year fracture risk of a major osteoporotic fracture 17 percent and of a hip fracture 6.4 percent. (T score greater or equal to -1.0 to: NORMAL) (T score from -1.1 to -2.4: OSTEOPENIA) (T score less than or equal to -2.5: OSTEOPOROSIS) IMPRESSION: Osteopenia, with increased FRAX fracture risk as described above Follow-up guidelines as follows: Osteoporosis: Consider a repeat DEXA and Vertebral Fracture Assessment (VFA) exam in 2 years or sooner if medically necessary, to reassess this patient's status. Osteopenia: Consider a repeat DEXA in 2-3 years to reassess this patient's status, or if there is a new clinical indication. Normal: Consider a repeat DEXA in 5 years or sooner, or if there is a new clinical indication. All treatment decisions require clinical judgment and consideration of individual patient factors, including patient preferences, comorbidities, previous drug use, risk factors not captured in the FRAX model (e.g., frailty, falls, vitamin D deficiency, increased bone turnover, interval significant decline in bone density ) and possible under- or over-estimation of fracture risk by FRAX. In addition, the NOF Guide recommends that FDA-approved medical therapies be considered in postmenopausal women and men age >= 50 years with a: * Hip or vertebral (clinical or morphometric) fracture * T-score of <=-2.5 at the spine or hip * Ten-year fracture probability by FRAX of >= 3% for hip fracture or >=20% for major osteoporotic fracture. Dictated by: Chet Vera M.D. on 08/08/2025 at 12:48 Approved by: Chet Vera M.D. on 08/08/2025 at 12:49
== END ==
LOC: RAD 10:03
PROVIDERS: Family Provider Family Medicine; PCP Family Medicine; Referring Provider Family Medicine; Visit Provider Family Medicine
DX: M85.89 Other specified disorders of bone density and structure, multiple sites (principal); Z78.0 Asymptomatic menopausal state
CPT/HCPCS: 77080